=== PATIENT | female | born 2000 | race Caucasian/White ===

== ENCOUNTER 2018-05-18 20:38 | Emergency (ER) | payer BC ==
[2018-05-18] MEDS ORDERED: birth control PO (20:54)
--- NOTE | 2018-05-18 20:56 | ER Report ---
History and Physical Time Seen By MD: 20:56 Hx. of Stated Complaint: patient states she started feeling sick on , patient having cough, fevers, sore throat, and congestion. tyelnol at 2020. HPI/ROS CHIEF COMPLAINT: Flu symptoms HISTORY OF PRESENT ILLNESS: 18-year-old female sick since Wednesday with viral upper respiratory infection. She has a frequent cough, some intermittent low- grade fevers. She's had some clear rhinitis. She's had no nausea or vomiting. She denies exposure to ill contacts. She notes no shortness of breath. She denies dysuria. She notes a few diffuse body aches. Patient initially started out with a sore throat that has resolved. Patient denies exposure to strep throat. REVIEW OF SYSTEMS: Respiratory: As above Cardiovascular: No chest pain, no palpitations. Gastrointestinal: No vomiting, no abdominal pain. Musculoskeletal: No back pain. Allergies: Coded Allergies: No Known Drug Allergies (Unverified , 05/18/18) Home Meds Reported Medications [ control] No Conflict Check, 1 TAB PO QDAY 05/18/18 Reviewed Nurses Notes: Yes Old Medical Records Reviewed: Yes Constitutional Vital Sign - Last 24 Hours 05/18/18 05/18/18 05/18/18 05/18/18 20:50 20:53 20:56 21:00 Temp 98.6 Pulse 120 102 Resp 16 B/P (MAP) 146/98 113/96 (102) 123/88 (100) Pulse Ox 95 96 O2 Delivery Room Air 05/18/18 05/18/18 05/18/18 05/18/18 21:08 21:23 21:30 21:35 Pulse 102 110 105 B/P (MAP) 118/89 (99) Pulse Ox 96 95 93 05/18/18 05/18/18 05/18/18 21:40 21:45 21:50 Pulse 90 98 96 Pulse Ox 96 89 98 Physical Exam General Appearance: patient is alert, has no immediate need for airway protection and no current signs of toxicity. Vital signs stable, afebrile, pulse ox normal HEENT: Pupils equal and round no injection. TMs normal, oropharynx with moderate erythema, no exudate or petechiae Respiratory: Chest is non tender, lungs are clear to auscultation. No wheezing or rails Cardiac: regular rate and rhythm Gastrointestinal: Abdomen is soft and non tender, no masses, bowel sounds normal. Musculoskeletal: Neck: Neck is supple and non tender. No lymphadenopathy, no meningismus Extremities have full range of motion and are non tender. Skin: No rashes or lesions. DIFFERENTIAL DIAGNOSIS: After history and physical exam differential diagnosis was considered for adult fever including but not limited to viral syndromes including influenza, urinary tract infection, pneumonia and sepsis. Medical Decision Making Data Points Laboratory Hematology Test 05/18/18 20:53 Influenza Virus Type A (PCR) Negative (NEGATIVE) Influenza Virus Type B (PCR) Negative (NEGATIVE) Chemistry Test 05/18/18 20:53 Influenza Virus Type A (PCR) Negative (NEGATIVE) Influenza Virus Type B (PCR) Negative (NEGATIVE) ED Course/Re-evaluation ED Course Patient was admitted to an examination room. H&P was done. The differential diagnoses was considered. On clinical examination. Patient has an erythematous throat without exudate or petechiae. She's had some low-grade fevers. Rapid influenza is performed which is negative. Patient took Tylenol prior to coming her fever is down currently. She is mildly tachycardic with a heart rate of 120. Patient's advised to conservative treatment plan of DayQuil and NyQuil as well as ibuprofen. She is advised to increase her fluid intake. She is advised to follow-up with [facility] or primary care if unimproved in 3-5 days. Decision to Disposition Date: May 18, 2018 Decision to Disposition Time: 21:47 Depart Departure Latest Vital Signs Vital Signs Date Time Temp Pulse Resp B/P (MAP) Pulse Ox O2 Delivery O2 Flow Rate FiO2 05/18/18 21:50 96 98 05/18/18 21:30 118/89 (99) 05/18/18 20:50 98.6 16 Room Air Impression: Primary Impression: Fever Additional Impression: Viral syndrome Condition: Improved Disposition: HOME OR SELF-CARE Referrals: DEMETRICE BRISENO MD, FARRUKH MD Patient Instructions: Fever in Adults (ED), Viral Syndrome (ED) Additional Instructions: Use DayQuil during the daytime, NyQuil at bedtime Take ibuprofen 200 mg 3-4 tablets every 6-8 hours as needed for fever and body ache control Increase your fluid intake Follow-up with primary care if unimproved in 3-5 days Problem Qualifiers Primary Impression: Fever Fever type: unspecified Qualified Codes: R50.9 - Fever, unspecified JOCELYN PEREZ DO May 18, 2018 20:56
[2018-05-18 21:30] VITALS: BP 118/89
== END 2018-05-18 21:54 | disposition home or self-care (01) ==
LOC: ER 21:14
DX: B34.9 Viral infection, unspecified (principal)
CPT/HCPCS: 87502; 99282